=== PATIENT | male | born 1980 | race Caucasian/White ===

== ENCOUNTER 2017-11-26 09:34 | Outpatient (REF) | payer OTHER, SELFPAY ==
[2017-11-26 20:13] LABS: BUN 16 mg/dL (7-18); CREATININE 0.78 mg/dL (0.70-1.30); Calcium 8.4 mg/dL (8.5-10.1); Chloride 105 mmol/L (98-107); Cholesterol 161 mg/dL (50-200); Glucose 87 mg/dL (70-100); HDL Cholesterol 54 mg/dL (40-60); LDL CHOLESTEROL 100 mg/dL (<100); Potassium 4.3 mmol/L (3.5-5.1); Sodium 140 mmol/L (136-145); Triglyceride 66 mg/dL (30-150)
== END 2017-11-26 09:54 ==
LOC: NCHCN 09:34
PROVIDERS: Visit Provider Physician Assistant Medical
DX: Z00.00 Encounter for general adult medical examination without abnormal findings (principal); Z68.41 Body mass index [BMI] 40.0-44.9, adult; Z13.220 Encounter for screening for lipoid disorders; Z13.228 Encounter for screening for other metabolic disorders; Z13.29 Encounter for screening for other suspected endocrine disorder
CPT/HCPCS: 80048; 80061; 83721; 84443

== ENCOUNTER 2021-04-25 14:16 | Outpatient (REF) | payer OTHER, SELFPAY ==
[2021-04-25 20:43] LABS: Hemoglobin A1C 5.6 % (<5.7)
[2021-04-25 20:44] LABS: ALT 135 U/L (16-63); AST 45 U/L (15-37); Albumin 3.9 g/dL (3.4-5.0); Alkaline Phosphatase 83 U/L (46-116); Anion Gap 9.3 mmol/L (3-11); BUN 13 mg/dL (7-18); Bilirubin, Total 0.6 mg/dL (0.2-1.0); CO2 28.7 mmol/L (21.0-32.0); CREATININE 0.8 mg/dL (0.70-1.30); Calcium 9.1 mg/dL (8.5-10.1); Calculated LDL 98 mg/dL (<100); Chloride 101 mmol/L (98-107); Cholesterol 160 mg/dL (<200); Glucose 90 mg/dL (74-106); HDL Cholesterol 52 mg/dL (40-60); Potassium 3.8 mmol/L (3.5-5.1); Sodium 139 mmol/L (136-145); Triglyceride 51 mg/dL (<150)
== END 2021-04-25 14:17 | disposition home or self-care (01) ==
LOC: NCHCN 14:16
PROVIDERS: Visit Provider Nurse Practitioner Family
DX: I10 Essential (primary) hypertension (principal); Z13.1 Encounter for screening for diabetes mellitus
CPT/HCPCS: 80053; 80061; 83036

== ENCOUNTER 2021-05-16 09:37 | Outpatient (REF) | payer OTHER, SELFPAY ==
[2021-05-16 19:32] LABS: HCT 41.6 % (40.0-50.0); HGB 13.6 g/dL (13.5-17.5); MCH 30.2 pg (27.0-33.0); MCHC 32.7 % (32.0-36.0); MCV 92.2 fL (80-95); Platelet Count 246 10^3/uL (130-400); RBC 4.51 10^6/uL (4.36-5.78); RDW 12.6 % (11.8-14.1); RDW-SD 42.6 fL; WBC 7.29 10^3/uL (4.4-10.8)
[2021-05-16 19:42] LABS: Iron 71 ug/dL (65-175); Total Iron Binding Capacity 313 ug/dL (250-450); Transferrin Sat 23 % (20-55)
[2021-05-16 20:11] LABS: ALT 94 U/L (16-63); AST 31 U/L (15-37); Albumin 3.7 g/dL (3.4-5.0); Alkaline Phosphatase 72 U/L (46-116); Bilirubin, Total 0.4 mg/dL (0.2-1.0); Ferritin 223 ng/mL (26-388); Total Protein 7.4 g/dL (6.4-8.2)
[2021-05-16 20:22] LABS: Bilirubin, Direct 0.1 mg/dL (0.0-0.2)
[2021-05-18 11:28] LABS: Hepatitis B Surface Ag Negative (Negative)
[2021-05-18 12:07] LABS: Hepatitis C Ab w Rflx HCV PCR Negative (Negative)
== END 2021-05-16 09:38 | disposition home or self-care (01) ==
LOC: NCHCN 09:37
PROVIDERS: Visit Provider Nurse Practitioner Family
DX: R79.89 Other specified abnormal findings of blood chemistry (principal); Z11.59 Encounter for screening for other viral diseases
CPT/HCPCS: 80076; 85027; 86803; 87340; 82728; 83540; 83550

== ENCOUNTER 2022-10-09 19:12 | Outpatient (REF) | payer OTHER, SELFPAY ==
[2022-10-09 22:13] LABS: ALT 79 U/L (16-63); AST 50 U/L (15-37); Albumin 3.8 g/dL (3.4-5.0); Alkaline Phosphatase 61 U/L (46-116); Anion Gap 12.9 mmol/L (3-11); BUN 12 mg/dL (7-18); Bilirubin, Direct 0.1 mg/dL (0.0-0.2); Bilirubin, Total 0.5 mg/dL (0.2-1.0); CO2 25.1 mmol/L (21.0-32.0); CREATININE 0.9 mg/dL (0.70-1.30); Calcium 9.2 mg/dL (8.5-10.1); Chloride 101 mmol/L (98-107); Estimated GFR 108.68 (mL/min/1.73m2); Glucose 94 mg/dL (74-106); Potassium 3.8 mmol/L (3.5-5.1); Sodium 139 mmol/L (136-145); Total Protein 8.1 g/dL (6.4-8.2)
== END 2022-10-09 19:13 | disposition home or self-care (01) ==
LOC: NCHCN 19:12
PROVIDERS: Visit Provider Nurse Practitioner Family
DX: I10 Essential (primary) hypertension (principal); R79.89 Other specified abnormal findings of blood chemistry
CPT/HCPCS: 80048; 80076

== ENCOUNTER 2023-08-07 09:08 | Outpatient (REF) | payer OTHER, SELFPAY ==
[2023-08-07 19:54] LABS: ALT 41 U/L (16-63); AST 28 U/L (15-37); Albumin 3.8 g/dL (3.4-5.0); Alkaline Phosphatase 64 U/L (46-116); Anion Gap 8.9 mmol/L (3-11); BUN 10 mg/dL (7-18); Bilirubin, Total 0.6 mg/dL (0.2-1.0); CO2 27.1 mmol/L (21.0-32.0); CREATININE 0.9 mg/dL (0.70-1.30); Chloride 102 mmol/L (98-107); Estimated GFR 108.01 (mL/min/1.73m2); Glucose 98 mg/dL (74-106); Potassium 3.7 mmol/L (3.5-5.1); Sodium 138 mmol/L (136-145); Total Protein 8.4 g/dL (6.4-8.2)
== END 2023-08-07 09:09 | disposition home or self-care (01) ==
LOC: NCHCN 09:08
PROVIDERS: PCP Nurse Practitioner Family; Visit Provider Nurse Practitioner Family
DX: I10 Essential (primary) hypertension (principal)
CPT/HCPCS: 80053

== ENCOUNTER 2024-04-07 11:22 | Outpatient (REF) | payer OTHER, SELFPAY ==
[2024-04-07 19:35] LABS: ALT 45 U/L (16-63); AST 28 U/L (15-37); Alkaline Phosphatase 67 U/L (46-116); BUN 13 mg/dL (7-18); Calcium 9.5 mg/dL (8.5-10.1); Calculated LDL 90 mg/dL (<100); Chloride 104 mmol/L (98-107); Cholesterol 159 mg/dL (<200); Estimated GFR 95.18 (mL/min/1.73m2); Glucose 85 mg/dL (74-106); HDL Cholesterol 58 mg/dL (40-60); Potassium 3.7 mmol/L (3.5-5.1); Sodium 142 mmol/L (136-145); Total Protein 8.2 g/dL (6.4-8.2); Triglyceride 55 mg/dL (<150)
[2024-04-13 10:42] LABS: Testosterone, Free 7.67 ng/dL (4.46-17.1); Testosterone, Total 322 ng/dL (240-950)
== END 2024-04-07 11:23 | disposition home or self-care (01) ==
LOC: NCHCN 11:22
PROVIDERS: PCP Nurse Practitioner Family; Visit Provider Nurse Practitioner Family
DX: R53.83 Other fatigue (principal); I10 Essential (primary) hypertension
CPT/HCPCS: 80053; 80061; 84402; 84403